=== PATIENT | male | born 1985 | race Hispanic/Latino ===

== ENCOUNTER 2017-09-24 18:55 | Emergency (ER) | payer OTHER ==
[2017-09-24 19:02] VITALS: RESP 16; O2SAT 98
[2017-09-24] MEDS ORDERED: Tdap Vaccine 0.5 ml Vial (10-64 yrs) IM ONE ×2 (19:23→21:59)
[2017-09-24 20:17] LABS: BASO # 0.1 K/uL (0.0-0.2); BASO % 0.8 % (0.0-2.0); EOS # 0.2 K/uL (0.0-0.7); EOS % 2.3 % (0.0-4.0); HEMOGLOBIN 14.6 g/dL (12.0-18.0); LYMPH # 2.2 K/uL (1.0-4.3); LYMPH % 32.3 % (20.0-40.0); MEAN CELL VOLUME 94.9 fl (80.0-94.0); MEAN CORPUSCULAR HEMOGLOBIN 32.5 pg (27.0-31.0); MEAN CORPUSCULAR HGB CONC 34.3 g/dL (33.0-37.0); MEAN PLATELET VOLUME 8.5 fl (7.2-11.7); MONO # 0.8 K/uL (0.0-0.8); MONO % 10.9 % (0.0-10.0); NEUT # 3.7 K/uL (1.8-7.0); NEUT % 53.7 % (50.0-75.0); NRBC % 0.1 % (0.0-0.0); RBC 4.47 Mil/uL (4.40-5.90); RED CELL DISTRIBUTION WIDTH 12.4 % (11.5-14.5); WHITE BLOOD COUNT 6.9 K/uL (4.8-10.8)
[2017-09-24 20:26] LABS: CALCIUM 9.2 mg/dL (8.4-10.2); GFR AFRICAN-AMERICAN > 60; GFR NON-AFRICAN AMERICAN > 60
[2017-09-24 20:30] LABS: ALB/GLOB RATIO 1.4 (1.0-2.1); ALBUMIN 4.7 g/dL (3.5-5.0); ALT/SGPT 130 U/L (21-72); AST/SGOT 79 U/L (17-59); BLOOD UREA NITROGEN 19 mg/dl (9-20)
[2017-09-24] MEDS ORDERED: Amoxicillin-Clav 500-125 mg Tab PO STA (20:49)
--- NOTE | 2017-09-24 20:52 | ED PDOC ---
HPI: General Adult Time Seen by Provider: 09/24/17 19:09 Chief Complaint (Nursing): Lower Extremity Problem/Injury Chief Complaint (Provider): Lower Extremity Problem/Injury History Per: Patient History/Exam Limitations: no limitations Onset/Duration Of Symptoms: Days (x10 days) Additional Complaint(s): Patient is a 32 y/o male who presents to the ED complaining of left foot pain for the past x10 days. Patient reports that he was in the [facility] last week and [place] 14 [place] on an object with his left foot that he believes is either coral or a sea urchin. Patient reports that he initially noticed multiple black dots at the site. He reports that the color changed to redness and on x5 days ago, on Tuesday, he began to develop cough congestion, itchy throat and had x2 episodes of vomiting; he is uncertain about having a fever. Patient states that since then the nausea has resolved. He denies diarrhea, abdominal pain, numbness, tingling, hemoptysis. He reports he developed a rash to his left foot that has become pruritic but not painful. Of note, patient didn't remove any foreign bodies in his foot nor does he have foreign body sensations. Past Medical History Reviewed: Historical Data, Nursing Documentation, Vital Signs Vital Signs: Last Vital Signs Temp 98.1 F 09/24/17 21:33 Pulse 79 09/24/17 21:33 Resp 16 09/24/17 21:33 BP 141/81 09/24/17 21:33 Pulse Ox 98 09/24/17 21:38 - Medical History PMH: Fractures Denies: Chronic Kidney Disease - Family History Family History: States: No Known Family Hx - Social History Alcohol: < 2 Drinks/Day - Home Medications Home Medications: Ambulatory Orders Medication Instructions Recorded Amoxicillin/Potassium Clav 1 tab PO BID #19 tab 09/24/17 [Augmentin 500 mg-125 mg] Benzonatate [Tessalon Perle] 100 mg PO Q8 PRN #14 capsule 09/24/17 Fluticasone Propionate [Flonase] 2 spr NS DAILY PRN #1 bottle 09/24/17 Hydrocortisone 1% Cream [Cortizone 1 applic TOP BID #1 tube 09/24/17 1% Cream] - Allergies Allergies/Adverse Reactions: Allergies Allergy/AdvReac Type Severity Reaction Status Date / Time No Known Allergies Allergy Verified 10/01/15 22:48 Review of Systems ROS Statement: Except As Marked, All Systems Reviewed And Found Negative ENT: Positive for: Nose Congestion, Throat Pain (itchy throat) Respiratory: Positive for: Cough. Negative for: Hemoptysis Gastrointestinal: Positive for: Nausea, Vomiting. Negative for: Abdominal Pain , Diarrhea Musculoskeletal: Positive for: Foot Pain Skin: Positive for: Rash Neurological: Negative for: Numbness, Other (tingling) Physical Exam - Reviewed Nursing Documentation Reviewed: Yes Vital Signs Reviewed: Yes - Physical Exam Appears: Positive for: Non-toxic, No Acute Distress Head Exam: Positive for: ATRAUMATIC, NORMOCEPHALIC Skin: Positive for: Normal Color, Warm, Dry Eye Exam: Positive for: EOMI, Normal appearance, PERRL ENT: Positive for: Pharyngeal Erythema (mild; post nasal drip noted). Negative for: Tonsillar Exudate, Tonsillar Swelling Cardiovascular/Chest: Positive for: Regular Rate, Rhythm. Negative for: Murmur Respiratory: Positive for: Normal Breath Sounds. Negative for: Respiratory Distress Pulses-Dorsalis Pedis (L): 2+ Pulses-Dorsalis Pedis (R): 2+ Gastrointestinal/Abdominal: Positive for: Normal Exam, Soft. Negative for: Tenderness Back: Positive for: Normal Inspection. Negative for: L CVA Tenderness, R CVA Tenderness Extremity: Positive for: Capillary Refill (<2 seconds), Other (left medial foot has scattered multiple erythematous papules without vesicles, ecchymosis, pustules, break in skin integrity, surrounding erythema, fluctuance, or indurationl; no palpable foreign body) Neurologic/Psych: Positive for: Alert, Oriented. Negative for: Motor/Sensory Deficits - Laboratory Results Result Diagrams: 09/24/17 20:05 09/24/17 20:05 - ECG O2 Sat by Pulse Oximetry: 98 (RA) Pulse Ox Interpretation: Normal Medical Decision Making Medical Decision Making: Time: 19:23 Impression: Initial Plan: --CMP --CBC w/ diff --Tetanus --Blood culture --RAD - foot left --Influenza A B --Rapid strep Time: 20:50 Evaluated by [facility] resident, spoke with Dr. Granados. Patient is prescribed Augmentin and hydrocortisone cream. Patient instructed to follow up at Dr. Granados's office in one week. Patient was also informed of elevated LFTs and advised to f/u with PMD and to decrease ETOH intake. Upon provider reevaluation patient is feeling better, is medically stable, and requires no further treatment in the ED at this time. Patient will be discharged with Rx for Augmentin. Counseling was provided and all questions were answered regarding diagnosis and need for follow up with Dr. Granados. There is agreement to discharge plan and patient verbalizes understanding. Return if symptoms persist or worsen. Scribe Attestation: Documented by Maxwell Rey, acting as a scribe for Delmar Herrera PA-C. Provider Scribe Attestation: All medical record entries made by the scribe were at my direction and personally dictated by me. I have reviewed the chart and agree that the record accurately reflects my personal performance of the history, physical exam, medical decision making, and the department course for this patient. I have also personally directed, reviewed, and agree with the discharge instructions and disposition. Disposition - Clinical Impression Clinical Impression: Animal bites, URI (upper respiratory infection) - Patient ED Disposition Is Patient to be Admitted: No - Disposition Referrals: Alyssa Granados DPM [Staff Provider] - [facility] [Outside] Disposition: Routine/Home Disposition Time: 20:50 Condition: STABLE Additional Instructions: FOLLOW UP WITH DR. GRANADOS IN 1 WEEK WITHOUT FAIL JOSÉ SY, thank you for letting us take care of you today. Your provider was Carolin Avila MD and you were treated for LT FOOT SWELLING, NAUSEA. The emergency medical care you received today was directed at your acute symptoms. If you were prescribed any medication, please fill it and take as directed. It may take several days for your symptoms to resolve. Return to the Emergency Department if your symptoms worsen, do not improve, or if you have any other problems. Please contact your doctor or call one of the physicians/clinics you have been referred to that are listed on the Patient Visit Information form that is included in your discharge packet. Bring any paperwork you were given at discharge with you along with any medications you are taking to your follow up visit. Our treatment cannot replace ongoing medical care by a primary care provider outside of the emergency department. Thank you for allowing the [facility] team to be part of your care today. If you had an X-Ray or CT scan: A Radiologist will review the ED reading if any change in treatment is needed we will contact you. If you had a blood, urine, or wound culture: It will take several days for the results, if any change in treatment is needed we will contact you. If you had an STI test: It will take 48 hours for the results. Please call after 1 week if you have not heard back. Prescriptions: Amoxicillin/Potassium Clav [Augmentin 500 mg-125 mg] 1 tab PO BID #19 tab Benzonatate [Tessalon Perle] 100 mg PO Q8 PRN #14 capsule PRN Reason: Cough Fluticasone Propionate [Flonase] 2 spr NS DAILY PRN #1 bottle PRN Reason: Allergy Symptoms Hydrocortisone 1% Cream [Cortizone 1% Cream] 1 applic TOP BID #1 tube Instructions: Animal Bites (DC), Viral Upper Respiratory Infection, Adult (DC) Forms: [employer] (Bulgarian), [facility] ED School/Work Excuse Print Language: BULGARIAN
--- NOTE | 2017-09-24 21:05 | CP.PCM.CON ---
History of Present Illness - History of Present Illness History of Present Illness: Podiatry Consult Note for Dr. Granados: 32 yo male patient, without pertinent PMHx,seen and evaluated in the ED for left foot rash. He states the rash started last Tuesday when he grazed his left foot along a coral reef in the [facility]. When he first grazed the reef, he washed the area with soap and water and scraped off little black dots from the area. He states that the rash resolved over the course of the week and it came back today. He notes that the rash is not painful however it is itchy. He also notes that he had congestion and a head cold over the past week and vomited once , however he is unsure if it is unrelated to the rash. Patient currently denies N/V/F/SOB/CP. PMHx: Denies All: NKDA PSHx: Left ankle surgery Review of Systems - Review of Systems Review of Systems: As per HPI Past Patient History - Past Social History Smoking Status: Never Smoked - CARDIAC Hx Cardiac Disorders: No - PULMONARY Hx Respiratory Disorders: No - NEUROLOGICAL Hx Neurological Disorder: No - HEENT Hx HEENT Problems: No - RENAL Hx Chronic Kidney Disease: No - ENDOCRINE/METABOLIC Hx Endocrine Disorders: No - HEMATOLOGICAL/ONCOLOGICAL Hx Blood Disorders: No - INTEGUMENTARY Hx Dermatological Problems: No - MUSCULOSKELETAL/RHEUMATOLOGICAL Hx Fractures: Yes - GASTROINTESTINAL Hx Gastrointestinal Disorders: No - GENITOURINARY/GYNECOLOGICAL Hx Genitourinary Disorders: No - PSYCHIATRIC Hx Psychophysiologic Disorder: No Hx Substance Use: No - SURGICAL HISTORY Hx Surgeries: Yes Hx Musculoskeletal Surgery: Yes (Left foot) Meds Home Medications: Home Medication List Medication Instructions Recorded Confirmed Type Amoxicillin/Potassium Clav 1 tab PO BID #19 tab 09/24/17 Rx [Augmentin 500 mg-125 mg] Benzonatate [Tessalon Perle] 100 mg PO Q8 PRN #14 capsule 09/24/17 Rx Fluticasone Propionate [Flonase] 2 spr NS DAILY PRN #1 bottle 09/24/17 Rx Hydrocortisone 1% Cream [Cortizone 1 applic TOP BID #1 tube 09/24/17 Rx 1% Cream] Allergies/Adverse Reactions: Allergies Allergy/AdvReac Type Severity Reaction Status Date / Time No Known Allergies Allergy Verified 10/01/15 22:48 Physical Exam - Constitutional Appears: Well, Non-toxic, No Acute Distress - Head Exam Head Exam: ATRAUMATIC, NORMOCEPHALIC - Extremities Exam Additional comments: LLE focused exam Vascular: DP/PT 2/4 , CFT <3 seconds to all digits, TG warm to warm bilaterally , no edema noted Ortho: No tenderness or pain upon palpation, MMT 5/5 to all compartments Neuro: Gross and protective sensation intact Derm: Well circumscribed, solid, elevated lesions in a rash-like pattern to the medial aspect of left foot. Mild erythema noted to lesions, no open lesions, no malodor, no tunneling, no tracking, no streaking, no fluctuance, no clinical signs of infection - Neurological Exam Neurological exam: Alert, Oriented x3 - Psychiatric Exam Psychiatric exam: Normal Affect, Normal Mood Results - Vital Signs Recent Vital Signs: Last Vital Signs Temp 98.2 F 09/24/17 18:58 Pulse 76 09/24/17 18:58 Resp 16 09/24/17 18:58 BP 159/99 H 09/24/17 18:58 Pulse Ox 98 09/24/17 20:57 - Labs Result Diagrams: 09/24/17 20:05 09/24/17 20:05 Labs: Laboratory Results - last 24 hr 09/24/17 09/24/17 09/24/17 20:05 20:05 20:05 WBC 6.9 RBC 4.47 Hgb 14.6 Hct 42.5 MCV 94.9 H MCH 32.5 H MCHC 34.3 RDW 12.4 Plt Count 192 MPV 8.5 Neut % (Auto) 53.7 Lymph % (Auto) 32.3 [place] % (Auto) 10.9 H Eos % (Auto) 2.3 Baso % (Auto) 0.8 Neut # (Auto) 3.7 Lymph # (Auto) 2.2 [place] # (Auto) 0.8 Eos # (Auto) 0.2 Baso # (Auto) 0.1 Sodium 139 Potassium 4.7 Chloride 104 Carbon Dioxide 27 Anion Gap 13 BUN 19 Creatinine 0.8 Est GFR ( Amer) > 60 Est GFR (Non-Af Amer) > 60 Random Glucose 87 Calcium 9.2 Total Bilirubin 0.9 AST 79 H ALT 130 H Alkaline Phosphatase 58 Total Protein 7.9 Albumin 4.7 Globulin 3.3 Albumin/Globulin Ratio 1.4 Influenza Typ A,B (EIA) Negative for flu a/b Grp A Beta Strep Ag 09/24/17 20:05 WBC RBC Hgb Hct MCV MCH MCHC RDW Plt Count MPV Neut % (Auto) Lymph % (Auto) [place] % (Auto) Eos % (Auto) Baso % (Auto) Neut # (Auto) Lymph # (Auto) [place] # (Auto) Eos # (Auto) Baso # (Auto) Sodium Potassium Chloride Carbon Dioxide Anion Gap BUN Creatinine Est GFR ( Amer) Est GFR (Non-Af Amer) Random Glucose Calcium Total Bilirubin AST ALT Alkaline Phosphatase Total Protein Albumin Globulin Albumin/Globulin Ratio Influenza Typ A,B (EIA) Grp A Beta Strep Ag Negative Assessment & Plan - Assessment and Plan (Free Text) Assessment: 32 yo male patient, without pertinent PMHx, seen and evaluated in the ED for left foot rash. Plan: Patient seen and evaluated with all questions and concerns addressed Patient discussed in detail with attending Dr. Granados Chart, labs, and vitals reviewed; afebrile, absent leukocytosis L foot x-rays reviewed; no osseous abnormalities, no evidence of foreign body Rx for Augmentin 500mg/125mg PO Patient advised to apply OTC hydrocortisone cream to the area daily Patient instructed to ice left foot to help reduce inflammation Patient to f/u in office with Dr. Granados within 1 week Thank you for the consult and allowing us to partake in the care of this patient - Date & Time Date: 09/24/17 Time: 21:12
[2017-09-24] MEDS ORDERED: Amoxicillin-Clav 875-125 mg Tab PO STA (21:08)
[2017-09-24 21:34] VITALS: BP 141/81; PULSE 79; TEMP 98.1
--- NOTE | 2017-09-25 12:26 | RAD ---
Date of service: 09/24/2017 PROCEDURE: Left Foot Radiographs. HISTORY: bites COMPARISON: None. FINDINGS: BONES: No acute fracture. Status post ORIF distal tibia. JOINTS: Normal. SOFT TISSUES: Normal. OTHER FINDINGS: None. IMPRESSION: No acute fracture.
== END 2017-09-24 21:34 | disposition home or self-care (01) ==
LOC: H.ER 18:55
DX: J06.9 Acute upper respiratory infection, unspecified (principal); S91.352A Open bite, left foot, initial encounter; W64.XXXA Exposure to other animate mechanical forces, initial encounter